=== PATIENT | male | born 1965 | race Caucasian/White ===

== ENCOUNTER 2019-04-28 22:16 | Observation (INO) | payer MEDICARE, MEDICAID ==
[~2019-04-28] VITALS: Ht 172.7 cm; Wt 81.6 kg
[2019-04-28] MEDS ORDERED: LANTUS SOL100 UNIT/1 SC (22:27)
[2019-04-28] MEDS ORDERED: NOVOLOG100 UNIT/1 SC (22:27)
[2019-04-28] MEDS ORDERED: LIPITOR20 MG PO (22:28)
[2019-04-28] MEDS ORDERED: CELEXA40 MG PO (22:28)
[2019-04-28] MEDS ORDERED: REMERON30 MG PO (22:28)
[2019-04-28] MEDS ORDERED: UNK BP MED (22:29)
--- NOTE | 2019-04-28 23:48 | NUR ---
URINE SPECIMEN SENT TO LAB
[2019-04-29 00:20] LABS: EOSINOPHILS 1.5 % (0-7); HEMATOCRIT 48.3 % (42.0-54.0); HEMOGLOBIN 17.1 g/dL (13.5-17.5); IMMATURE GRANULOCYTES 0.7 % (0-5); LYMPHOCYTES 15.6 % (15-50); MCH 31.5 pg (26.0-34.0); MCHC 35.4 g/dL (31.0-37.0); MEAN PLATELET VOLUME 10.1 fL (7.4-10.4); MONOCYTES 7.4 % (2-11); NEUTROPHILS 73.8 % (40-80); PLATELET COUNT 250 10x3/uL (130-400); RBC 5.43 10x6/uL (4.20-6.10); RDW 14.1 % (11.5-14.5); WBC 8.4 10x3/uL (4.8-10.8)
[2019-04-29 00:23] LABS: ALBUMIN 3.9 g/dL (3.4-5.0); ALKALINE PHOSPHATASE 133 U/L (46-116); ALT (SGPT) 29 U/L (10-68); BILIRUBIN - TOTAL 2.16 mg/dL (0.2-1.3); CALC OSMOLALITY 281 mosm/kg (275-300); CARBON DIOXIDE 27.5 mmol/L (21.0-32.0); CHLORIDE - SERUM 99 mmol/L (98-107); CREATININE - SERUM 0.8 mg/dL (0.6-1.3); MAGNESIUM - SERUM 1.7 mg/dL (1.8-2.4); POTASSIUM - SERUM 3.9 mmol/L (3.5-5.1); PROTEIN - SERUM 6.9 g/dL (6.4-8.2); SODIUM 136 mmol/L (136-145); UREA NITROGEN 15 mg/dL (7-18); eGFR NON AFRICAN AMERICAN > 90 mL/min (90-120)
[2019-04-29 00:27] LABS: GLUCOSE 261 mg/dL (74-106)
[2019-04-29 00:29] LABS: APPEARANCE CLEAR (CLEAR); BILIRUBIN NEGATIVE (NEGATIVE); COLOR YELLOW (YELLOW); GLUCOSE 500 mg/dL (NEGATIVE); KETONE MODERATE mg/dL (NEGATIVE); NITRITE NEGATIVE (NEGATIVE); PROTEIN NEGATIVE (NEGATIVE); SPECIFIC GRAVITY 1.015 (1.005-1.020); UROBILINOGEN NORMAL (NORMAL)
[2019-04-29 00:30] LABS: BACTERIA FEW /hpf (NEGATIVE); EPITHELIAL CELLS 0-5 /hpf (0-5); RED CELLS - URINE 0-5 /hpf (0-5); WHITE CELLS - URINE NSEEN /hpf (NEGATIVE)
[2019-04-29 00:31] LABS: KETONE - SERUM SMALL mg/dL (NEGATIVE)
[2019-04-29 00:52] LABS: AMYLASE - SERUM 55 U/L (25-115); LIPASE 211 U/L (73-393); PRO BNP 26 pg/mL (0-125); TROPONIN-I < 0.017 ng/mL (0.000-0.060)
--- NOTE | 2019-04-29 00:53 | NUR ---
PT LEFT ED VIA STRETCHER FOR CT.
--- NOTE | 2019-04-29 01:13 | NUR ---
PT RETURNED FROM CT VIA STRETCHER.
[2019-04-29] MEDS ORDERED: NEURONTIN600 MG PO (03:00)
[2019-04-29] MEDS ORDERED: CATAPRES0.1 MG PO (03:01)
[2019-04-29] MEDS ORDERED: VERAPAMIL HCL40 MG PO (03:02)
[2019-04-29] MEDS ORDERED: PLAVIX75 MG PO (03:14)
[2019-04-29] MEDS ORDERED: SYNTHROID25 MCG PO (03:15)
[2019-04-29 03:48] VITALS: BP 129/76; BMI 27.4
--- NOTE | 2019-04-29 07:10 | NUR ---
PATIENT RECIEVED FROM PREVIOUS SHIFT RESTING WITH NO NEEDS VICED, CL IN REACH
[2019-04-29 07:17] LABS: BASOPHILS 0.6 % (0-2); EOSINOPHILS 2.3 % (0-7); HEMATOCRIT 45.6 % (42.0-54.0); HEMOGLOBIN 16.2 g/dL (13.5-17.5); IMMATURE GRANULOCYTES 0.5 % (0-5); LYMPHOCYTES 23.8 % (15-50); MCHC 35.5 g/dL (31.0-37.0); MCV 89.9 fL (80.0-100.0); MEAN PLATELET VOLUME 10.3 fL (7.4-10.4); MONOCYTES 10.1 % (2-11); NEUTROPHILS 62.7 % (40-80); PLATELET COUNT 257 10x3/uL (130-400); RBC 5.07 10x6/uL (4.20-6.10); RDW 14.1 % (11.5-14.5); WBC 7.9 10x3/uL (4.8-10.8)
[2019-04-29 07:44] LABS: CALC OSMOLALITY 278 mosm/kg (275-300); CALCIUM 8.8 mg/dL (8.5-10.1); CARBON DIOXIDE 26.4 mmol/L (21.0-32.0); CHLORIDE - SERUM 102 mmol/L (98-107); CREATININE - SERUM 0.8 mg/dL (0.6-1.3); MAGNESIUM - SERUM 1.7 mg/dL (1.8-2.4); PHOSPHOROUS 3.5 mg/dL (2.5-4.9); POTASSIUM - SERUM 4.2 mmol/L (3.5-5.1); SODIUM 139 mmol/L (136-145); UREA NITROGEN 13 mg/dL (7-18); eGFR NON AFRICAN AMERICAN > 90 mL/min (90-120)
[2019-04-29 07:45] LABS: GLUCOSE 114 mg/dL (74-106)
[2019-04-29 08:47] VITALS: BP 137/91
--- NOTE | 2019-04-29 11:11 | NUR ---
PATIENT TOLERATING REGULAR DIET WELL WITH NO PAIN OR NAUSEA
[2019-04-29] MEDS ORDERED: LEVAQUIN750 MG PO (11:40)
[2019-04-29] MEDS ORDERED: FLAGYL500 MG PO (11:40)
[2019-04-29] MEDS ORDERED: ZOFRAN ODT4 MG/UDTAB PO (11:42)
[2019-04-29] MEDS ORDERED: FLORAJEN3 CAPS460 MG PO (11:42)
--- NOTE | 2019-04-29 12:20 | MORECARE ---
CASE MANAGEMENT DISCHARGE SUMMARY PATIENT: JALEN MCCALLUM III UNIT: [id number] ADM DATE: 04/29/19 AGE: 53 : 63 SEX: M ROOM/BED: D.2222 AUTHOR: JONA,DOC PHYSICIAN: REFERRING PHYSICIAN: VONDA FLORES MD DATE OF SERVICE: 04/29/19 Discharge Plan Patient Name: JALEN MCCALLUM Facility: [facility]:[place] : 1965 Planned Disposition: Home Anticipated Discharge Date: 04/29/19 Discharge Date: Expected LOS: 1 Initial Reviewer: [email or web address] Initial Review Date: 04/29/2019 Generated: 04/29/19 1:19 pm DCP- Discharge Planning Updated by [email or web address]: Kathy Serna on 04/29/19 11:[address] Patient Name: JALEN MCCALLUM Admission Status: ER Accout number: [id number] Admission Date: 04-29-2019 : 1965 Admission Diagnosis: Attending: VONDA FLORES Current LOS: 1 Anticipated DC Date: 04-29-2019 Planned Disposition: Home Primary Insurance: [facility] MEDICARE SOLUTIONS Discharge Planning Comments: CM met with patient to complete initial dc planning assessment. CM educated patient on the CM role and verbal consent given by patient to complete assessment. Patient lives at home with a room mate (Mel Abraham). At discharge patient plans to return and feels this is a safe discharge. States his room mate will take him home on discharge. CM discussed availability of home health, rehab services, and medical equipment. Patient denied known discharge needs at this time. He states he has been IDDM since he was a child and checks his blood sugar at least 4 times a day. CM will continue to follow and will assist as needed with dc plans/needs. Retail Business Development Manager: Kathy Serna DCPIA - Discharge Planning Initial Assessment Updated by [email or web address]: Kathy Serna on 04/29/19 12:16 pm * Is the patient Alert and Oriented? Yes * How many steps to enter\exit or inside your home? 2/0 * PCP Dr. Smith * Pharmacy [facility] * Preadmission Environment Home with Family * ADLs Independent * Equipment Glucometer * List name and contact numbers for known caregivers / representatives who currently or will assist patient after discharge: Mel Abraham [facility] mate - [phone] * Verbal permission to speak to the caregivers and representatives has been obtained from the patient. Yes * Community resources currently utilized None * Additional services required to return to the preadmission environment? No * Can the patient safely return to the preadmission environment? Yes * Has this patient been hospitalized within the prior 30 days at any hospital? No Patient Name: JALEN MCCALLUM Page [id number] at 1220 All edits/amendments must be made on the electronic document DICTATION DATE: 04/29/191218 SOCIAL MEDIA SPECIALIST: RIKA 04/29/191218 RPT#: [id number] DC DATE: STATUS: ADM IN [facility] [address] [place] [address] END OF REPORT
[2019-04-29 12:36] VITALS: BP 139/82
[2019-04-29 12:55] VITALS: Ht 172.7 cm; Wt 81.6 kg
--- NOTE | 2019-04-29 13:34 | NUR ---
FLU VACCINE GIVEN IN LEFT DELTOID, PATIENT TOLERATED WELL. IV REMOVED WITH NO REDNESS OR EDEMA AT SITE. DISCHARGE INSTRUCTIONS GIVEN WITH PATIENT VOICING UNDERSTANDING. PATIENT TAKEN BY WHEELCHAIR TO PRIVATE CAR
--- NOTE | 2019-05-01 10:49 | MORECARE ---
CASE MANAGEMENT DISCHARGE SUMMARY PATIENT: JALEN MCCALLUM III UNIT: [id number] ADM DATE: 04/29/19 AGE: 53 : 63 SEX: M ROOM/BED: D.2222 AUTHOR: JONA,DOC PHYSICIAN: REFERRING PHYSICIAN: VONDA FLORES MD DATE OF SERVICE: 05/01/19 Discharge Plan Patient Name: JALEN MCCALLUM Facility: [facility]:[place] : 1965 Planned Disposition: Home Anticipated Discharge Date: 04/29/19 Discharge Date: 04/29/2019 Expected LOS: 1 Initial Reviewer: [email or web address] Initial Review Date: 04/29/2019 Generated: 05/01/19 11:49 am DCP- Discharge Planning Updated by [email or web address]: Kathy Serna on 04/29/19 11:[address] Patient Name: JALEN MCCALLUM Admission Status: ER Accout number: [id number] Admission Date: 04-29-2019 : 1965 Admission Diagnosis: Attending: VONDA FLORES Current LOS: 1 Anticipated DC Date: 04-29-2019 Planned Disposition: Home Primary Insurance: [facility] MEDICARE SOLUTIONS Discharge Planning Comments: CM met with patient to complete initial dc planning assessment. CM educated patient on the CM role and verbal consent given by patient to complete assessment. Patient lives at home with a room mate (Mel Abraham). At discharge patient plans to return and feels this is a safe discharge. States his room mate will take him home on discharge. CM discussed availability of home health, rehab services, and medical equipment. Patient denied known discharge needs at this time. He states he has been IDDM since he was a child and checks his blood sugar at least 4 times a day. CM will continue to follow and will assist as needed with dc plans/needs. Lining Caser: Kathy Serna DCPIA - Discharge Planning Initial Assessment Updated by [email or web address]: Kathy Serna on 04/29/19 12:16 pm * Is the patient Alert and Oriented? Yes * How many steps to enter\exit or inside your home? 2/0 * PCP Dr. Smith * Pharmacy [facility] * Preadmission Environment Home with Family * ADLs Independent * Equipment Glucometer * List name and contact numbers for known caregivers / representatives who currently or will assist patient after discharge: Mel Abraham [facility] mate - [phone] * Verbal permission to speak to the caregivers and representatives has been obtained from the patient. Yes * Community resources currently utilized None * Additional services required to return to the preadmission environment? No * Can the patient safely return to the preadmission environment? Yes * Has this patient been hospitalized within the prior 30 days at any hospital? No Last DP export: 04/29/19 11:20 a Patient Name: JALEN MCCALLUM Page [id number] at 1049 All edits/amendments must be made on the electronic document DICTATION DATE: 05/01/191048 PHYSICIAN ALLERGIST IMMUNOLOGIST: RIKA 05/01/191048 RPT#: [id number] DC DATE:04/29/19 STATUS: DIS IN [facility] [address] [place] [address] END OF REPORT
== END 2019-04-29 13:35 | disposition home or self-care (01) ==
LOC: D.ER 22:16 → D.MS 04-29 01:45 → OBSVTIME 04-29 01:45 → D.ER 04-29 01:45 → D.MS 04-29 01:45
PROVIDERS: Family Medicine; ADMIT Family Medicine; ATTEND Family Medicine
DX: K52.9 Noninfective gastroenteritis and colitis, unspecified (principal); F17.203 Nicotine dependence unspecified, with withdrawal; R11.2 Nausea with vomiting, unspecified; E86.0 Dehydration; E11.40 Type 2 diabetes mellitus with diabetic neuropathy, unspecified; E03.9 Hypothyroidism, unspecified; I10 Essential (primary) hypertension; J44.9 Chronic obstructive pulmonary disease, unspecified; F32.9 Major depressive disorder, single episode, unspecified

== ENCOUNTER 2019-05-02 19:03 | Emergency (ER) | payer MEDICARE, MEDICAID ==
[~2019-05-02] VITALS: Ht 172.7 cm; Wt 81.8 kg
[~2019-05-02 19:03] MED LIST: CATAPRES0.1 MG PO; CELEXA40 MG PO; FLAGYL500 MG PO; FLORAJEN3 CAPS460 MG PO; LANTUS SOL100 UNIT/1 SC; LEVAQUIN750 MG PO; LIPITOR20 MG PO; NEURONTIN600 MG PO; NOVOLOG100 UNIT/1 SC; PLAVIX75 MG PO; REMERON30 MG PO; SYNTHROID25 MCG PO; UNK BP MED; VERAPAMIL HCL40 MG PO; ZOFRAN ODT4 MG/UDTAB PO
[2019-05-02 19:11] VITALS: Ht 172.7 cm; Wt 81.8 kg
[2019-05-02 19:47] LABS: ALBUMIN 4.1 g/dL (3.4-5.0); ANION GAP 16.7 mmol/L (8-16); BILIRUBIN - TOTAL 1.89 mg/dL (0.2-1.3); CALCIUM 9.6 mg/dL (8.5-10.1); CARBON DIOXIDE 26.9 mmol/L (21.0-32.0); CREATININE - SERUM 1.2 mg/dL (0.6-1.3); POTASSIUM - SERUM 4.6 mmol/L (3.5-5.1); PROTEIN - SERUM 6.9 g/dL (6.4-8.2)
[2019-05-02 19:51] LABS: BASOPHILS 0.6 % (0-2); EOSINOPHILS 0.7 % (0-7); HEMATOCRIT 46.3 % (42.0-54.0); HEMOGLOBIN 16.1 g/dL (13.5-17.5); IMMATURE GRANULOCYTES 0.5 % (0-5); LYMPHOCYTES 9.6 % (15-50); MCHC 34.8 g/dL (31.0-37.0); MEAN PLATELET VOLUME 10.1 fL (7.4-10.4); MONOCYTES 6.6 % (2-11); PLATELET COUNT 248 10x3/uL (130-400); RBC 5.03 10x6/uL (4.20-6.10); RDW 14.2 % (11.5-14.5); WBC 14.2 10x3/uL (4.8-10.8)
[2019-05-02] MEDS ORDERED: ZOFRAN ODT4 MG/UDTAB PO (21:11)
[2019-05-02 23:19] VITALS: BP 112/65
--- NOTE | 2019-05-06 09:39 | NUR ---
Prescription for Zofran, as prescribed per Dr. Killian (documented on chart) [place] [facility] [place] [facility] [address]
== END 2019-05-02 23:19 | disposition home or self-care (01) ==
LOC: D.ER 19:03
PROVIDERS: Emergency Medicine
DX: R11.2 Nausea with vomiting, unspecified (principal); E11.69 Type 2 diabetes mellitus with other specified complication